=== PATIENT | female | born 1950 | race Caucasian/White ===

== ENCOUNTER 2019-12-05 05:45 | Outpatient (RCR) | payer MEDICARE ==
[~2019-12-05] VITALS: Ht 167.6 cm; Wt 89.2 kg
[~2019-12-05 05:45] MED LIST: LISI-556 PO
== END 2019-12-05 15:12 | disposition home or self-care (01) ==
LOC: PREOP 05:45
PROVIDERS: ATTEND Surgery
DX: Z01.818 Encounter for other preprocedural examination (principal); Z11.59 Encounter for screening for other viral diseases
CPT/HCPCS: 87635

== ENCOUNTER 2019-12-08 08:25 | Day surgery (SDC) | payer MEDICARE, OTHER ==
[2019-12-08] VITALS (11 sets, daily range): BP systolic 121–162; BP diastolic 65–80
[~2019-12-08] VITALS: Ht 167 cm; Wt 89.2 kg
--- OUTSIDE RECORDS SUMMARY | 2019-12-08 08:30 | XMS REPORT | Continuity of Care Document ---
Author Organization Unknown Address Unknown Phone Unavailable Allergies Active Description Code Type Severity Reaction Onset Reported/Identified Relationship to Patient Clinical Status Yes SULFA (SULFONAMIDE ANTIBIOTICS) UNKNOWN UNKNOWN Yes Sulfa (Sulfonamide Antibiotics) [id number] 0491 Drug Allergy Unknown Hives 020 Medications There is no data. 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 04/06/2018 W 296.30 DAWSON OR DEPRESSIVE DISORDER, RECURRENT EPISODE, UNSPECIFIED DEGREE 04/06/2018 W 530.81 ESO PHAGEAL REFLUX 04/06/2018 W E78.5 HYPE RLIPIDEMIA, UNSPECIFIED 04/06/2018 W F33.9 ROSALIND R DEPRESSIVE DISORDER, RECURRENT, UNSPECIFIED 04/06/2018 W K21.9 MARIA INES RO-ESOPHAGEAL REFLUX DISEASE WITHOUT ESOPHAGITIS 04/06/2018 W V12.29 PER VIVEK HISTORY OF OTHER ENDOCRINE, METABOLIC, AND IMMUNITY DISORDERS 04/06/2018 W Z87.39 PER VIVEK HISTORY OF OTHER DISEASES OF THE MUSCULOSKELETAL SYSTEM AND CONNECTIVE TISSUE 07/02/2018 W 466.0 ACUT E BRONCHITIS 07/02/2018 W 780.79 OTH ER MALAISE AND FATIGUE 07/02/2018 W 786.05 MARII RTNESS OF BREATH 07/02/2018 W J20.9 ACUT E BRONCHITIS, UNSPECIFIED 07/02/2018 W R06.02 MARII RTNESS OF BREATH 07/02/2018 W R53.1 WEAKNESS 01/18/2019 W 401.0 GWENDOLYN GNANT ESSENTIAL HYPERTENSION 01/18/2019 W 530.81 ESO PHAGEAL REFLUX 01/18/2019 W 599.0 URIN BARBARA TRACT INFECTION, SITE NOT SPECIFIED 01/18/2019 W 788.41 URI NARY FREQUENCY 01/18/2019 W I10 ESSENT IAL (PRIMARY) HYPERTENSION 01/18/2019 W K21.0 MARIA INES RO-ESOPHAGEAL REFLUX DISEASE WITH ESOPHAGITIS 01/18/2019 W N39.0 URIN BARBARA TRACT INFECTION, SITE NOT SPECIFIED 01/18/2019 W R35.0 FREQ UENCY OF MICTURITION 01/28/2019 W 311 DEPRES SIVE DISORDER, NOT ELSEWHERE CLASSIFIED 01/28/2019 W 401.0 GWENDOLYN GNANT ESSENTIAL HYPERTENSION 01/28/2019 W 530.81 ESO PHAGEAL REFLUX 01/28/2019 W F32.9 ROSALIND R DEPRESSIVE DISORDER, SINGLE EPISODE, UNSPECIFIED 01/28/2019 W I10 ESSENT IAL (PRIMARY) HYPERTENSION 01/28/2019 W K21.0 MARIA INES RO-ESOPHAGEAL REFLUX DISEASE WITH ESOPHAGITIS 02/03/2019 Lety, Kristen W 401.0 MALIGNANT ESSENTIAL HYPERTENSION 02/03/2019 Lety, Kristen W I10 ESSENTIAL (PRIMARY) HYPERTENSION 02/03/2019 Lety, Kristen W 401.0 MALIGNANT ESSENTIAL HYPERTENSION 02/03/2019 Lety, Kristen W I10 ESSENTIAL (PRIMARY) HYPERTENSION 02/03/2019 Lety, Kristen W 401.0 MALIGNANT ESSENTIAL HYPERTENSION 02/03/2019 Lety, Kristen W 530.81 ESOPHAGEAL REFLUX 02/03/2019 Lety, Kristen W I10 ESSENTIAL (PRIMARY) HYPERTENSION 02/03/2019 Lety, Kristen W K21.0 GASTRO- ESOPHAGEAL REFLUX DISEASE WITH ESOPHAGITIS 02/03/2019 Lety, Kristen W 401.0 MALIGNANT ESSENTIAL HYPERTENSION 02/03/2019 Lety, Kristen W 530.81 ESOPHAGEAL REFLUX 02/03/2019 Lety, Kristen W I10 ESSENTIAL (PRIMARY) HYPERTENSION 02/03/2019 Lety, Kristen W K21.0 GASTRO- ESOPHAGEAL REFLUX DISEASE WITH ESOPHAGITIS 02/15/2019 Lety, Kristen W 788.41 URINARY FREQUENCY 02/15/2019 Lety, Kristen W R35.0 FREQUENCY OF MICTURITION 02/15/2019 Lety, Kristen W 599.0 URINARY TRACT INFECTION, SITE NOT SPECIFIED 02/15/2019 Lety, Kristen W 788.41 URINARY FREQUENCY 02/15/2019 Lety, Kristen W N39.0 URINARY TRACT INFECTION, SITE NOT SPECIFIED 02/15/2019 Lety, Kristen W R35.0 FREQUENCY OF MICTURITION 02/15/2019 Lety, Kristen W 599.0 URINARY TRACT INFECTION, SITE NOT SPECIFIED 02/15/2019 Lety, Kristen W 788.41 URINARY FREQUENCY 02/15/2019 Lety, Kristen W N39.0 URINARY TRACT INFECTION, SITE NOT SPECIFIED 02/15/2019 Lety, Kristen W R35.0 FREQUENCY OF MICTURITION 02/15/2019 Lety, Kristen W 599.0 URINARY TRACT INFECTION, SITE NOT SPECIFIED 02/15/2019 Lety, Kristen W 788.41 URINARY FREQUENCY 02/15/2019 Lety, Kristen W N39.0 URINARY TRACT INFECTION, SITE NOT SPECIFIED 02/15/2019 Lety, Kristen W R35.0 FREQUENCY OF MICTURITION 02/15/2019 Lety, Kristen W 599.0 URINARY TRACT INFECTION, SITE NOT SPECIFIED 02/15/2019 Lety, Kristen W 788.41 URINARY FREQUENCY 02/15/2019 Lety, Kristen W N39.0 URINARY TRACT INFECTION, SITE NOT SPECIFIED 02/15/2019 Lety, Kristen W R35.0 FREQUENCY OF MICTURITION Procedures There is no data. Results Test Result Range Cardiac Panel - 10/24/16 12:31 CK 72 U/L 26-174 CK-MB 2.4 ng/ml 0.0-9.2 Myoglobin 45.3 ng/ml 1.6-106.0 Troponin <0.020 ng/mL 0.0-0.4 Lipid Panel - 10/25/16 07:40 C/HDL 6.1 3.7-6.7 Cholesterol 236 mg/dL 100-240 HDL 39 mg/dL 30-85 LDL-Calculated 178 mg/dL 0-100 Trig 97 mg/dL 35-160 VLDL 19 mg/dL 0-42 Urine Culture - 01/13/17 15:50 PRELIM CULTURE RESULTS No Growth 24 hours FINAL CULTURE RESULTS 10,000-20,000 Gram Pos itive Mixed Lety Probable Skin Contaminant No Further Workup done MEDIA PLATED Setup at 15:23 on 01/14/2017 CULTURE SOURCE Urinalysis Free T4 - 04/03/18 10:10 Free T4 0.91 ng/dL 0.81-1.61 Thyroid Stimulating Hormone - 04/03/18 1 0:10 TSH 2.73 mIU/mL 0.32-5.00 Drug Screen + ETOH - 02/22/19 15:00 [employer] Forms Developer Sonia Song Donor ID By Photo ID Ethanol, Urine <10.00 mg/dL 20.00-80.00 Location FMI Reason For Test Pre-Employment Temperature In Range YES Deg F 90.00-100 .00 Urine Amphetamines NEGATIVE Urine Barbiturates NEGATIVE Urine Benzodiazepines NEGATIVE Urine Cocaine NEGATIVE Urine MDMA NEGATIVE Urine Methadone NEGATIVE Urine Methamphetamines NEGATIVE Urine Opiates NEGATIVE Urine Oxycodone NEGATIVE Urine PCP NEGATIVE Urine THC Metabolite NEGATIVE CBC with Auto Diff - 11/18/19 07:50 Baso% 0.30 % 0.00-2.50 Eos 0.2 K/uL 0.0-0.7 Eos% 1.8 % 0.0-7.0 Hct 40.6 % 36.0-46.0 Hgb 13.2 g/dL 13.0-15.0 Lym 2.09 K/uL 0.60-3.40 Lym% 23.0 % 10.0-50.0 MCH 30.6 pg 27.0-31.0 MCHC 32.5 g/dL 32.0-36.0 MCV 94.2 fL 80.0-97.0 [place]% 7.0 % 0.0-12.0 MPV 9.2 fL 7.4-10.0 [place]% 67.9 % 37.0-80.0 Plt 322 K/uL 150-400 RBC 4.31 M/uL 3.60-5.00 RDW 13.1 % 11.6-14.8 WBC 9.08 K/uL 5.00-10.00 [place] 6.16 K/uL 2.00-6.90 [place] 0.6 K/uL 0.0-0.9 Baso 0.0 K/uL 0.0-0.2 Coronavirus SARS-CoV-2 SO 2018 0 08:00 Coronavirus Ab [Units/volume] in Serum Negative Negative Encounters ACCT No. Visit Date/Time Discharge Status Pt. Type Provider Facility Loc./Unit Complaint [id number] 11/23/2019 08:46:00 11/23/2019 23:59 :00 DIS Outpatient Kristen Davidson [id number] 11/21/2019 08:42:00 11/21/2019 23:59 :00 DIS Outpatient Kristen Davidson [id number] 11/18/2019 08:40:00 11/18/2019 23:59 :00 DIS Outpatient Lety, Kristen [id number] 11/18/2019 07:37:00 11/18/2019 23:59 :00 DIS Outpatient Lety, Kristen [id number] 11/17/2019 10:51:00 11/17/2019 23:59 :00 DIS Outpatient Lety, Kristen [id number] 09/09/2019 14:31:00 09/09/2019 23:59 :00 DIS Outpatient Lety, Kristen [id number] 02/22/2019 14:46:00 02/22/2019 23:59: 00 DIS Outpatient UNLISTED, UNLISTED [id number] 02/15/2019 16:00:00 02/15/2019 23:59: 00 DIS Outpatient Lety, Kristen [id number] 02/03/2019 15:31:00 02/03/2019 23:59: 00 DIS Outpatient Lety, Kristen [id number] 04/03/2018 10:10:00 04/03/2018 23:59: 00 DIS Outpatient Lety, Kristen [id number] 01/13/2017 16:25:00 01/13/2017 23:59: 00 DIS Outpatient Tom Sanchez [id number] 10/25/2016 07:40:00 10/25/2016 23:59: 00 DIS Outpatient Tom Sanchez [id number] 10/24/2016 12:02:00 10/24/2016 23:59: 00 DIS Outpatient Tom Sanchez [id number] 02/15/2019 16:25:50 Document Registration [id number] 01/28/2019 14:28:00 Document Registration [id number] 01/18/2019 10:46:00 Document Registration [id number] 07/02/2018 11:06:00 Document Registration [id number] 04/06/2018 16:01:00 Document Registration [id number] 12/05/2019 05:45:00 020 15:12:00 DIS Outpatient SANTOS KEITH MD [facility] [place] [id number] 12/08/2019 09:00:00 P EN Preadmit [facility] KEITH [facility] [place]
--- NOTE | 2019-12-08 08:50 | Progress Note-Pre Operative ---
Pre-Operative Progress Note H&P Reviewed The H&P was reviewed, patient examined and no changes noted. Date Seen by Provider: Dec 08, 2019 Time Seen by Provider: 08:45 Date H&P Reviewed: Dec 08, 2019 Time H&P Reviewed: 08:40 Pre-Operative Diagnosis: Chronic calculous cholecystitis JI BATES LICENSE DISTRIBUTOR Dec 08, 2019 08:50
[2019-12-08] MEDS ORDERED: ROCURONIUM 10 MG/ML 5 ML SYRINGE IV ONE (08:51)
[2019-12-08] MEDS ORDERED: proPOfol 200 MG/20 ML (DIPRIVAN) VIAL IV ONE (08:51)
[2019-12-08] MEDS ORDERED: MIDAZOLAM 2 MG/2 ML (VERSED) VIAL ONE (08:51)
[2019-12-08] MEDS ORDERED: GLYCOPYRROLATE 0.2 MG/ML (ROBINUL) 2 ML VIAL ONE (08:51)
[2019-12-08] MEDS ORDERED: NEOSTIGMINE 3 MG/3 ML VIAL ONE (08:51)
[2019-12-08] MEDS ORDERED: SEVOFLURANE (ULTANE) 15 ML INHAL SOLN ONE (08:51)
[2019-12-08] MEDS ORDERED: LIDOCAINE PF 2% 5 ML (XYLOCAINE) VIAL ONE (08:51)
[2019-12-08] MEDS ORDERED: ONDANSETRON 4 MG/2 ML (SDV) Z0FRAN ONE (08:51)
[2019-12-08] MEDS ORDERED: fentaNYL INJECTION 100 MCG/2 ML AMP ONE (08:51)
[2019-12-08] MEDS ORDERED: DEXAMETHASONE 10 MG/ML (DECADRON) 1 ML VIAL ONE (08:51)
[2019-12-08] MEDS ORDERED: HYDR-4227 PO (08:52)
--- NOTE | 2019-12-08 08:52 | Discharge Inst-Surgical ---
D/C Lap Instructions-KIDO Reconcile Patient Problems Problems Reviewed?: Yes New, Converted, or Re-Newed RX: RX on Chart Follow Up Appt in 2 weeks Activity as tolerated No driving for 24 hours No driving while on pain medications Incentive Spirometry use every 2 hours while awake Regular Diet Symptoms to Report: Fever over 101 degree F, Nausea/Vomiting Infection Signs and Symptoms to report: Increased redness, Foul odor of wound, Increased drainage Bathing instructions: May shower Operative Area Clean/Dry; Keep incision clean/dry If any problems/questions: Contact your physician or go to Emergency Room JI BATES APRN Dec 08, 2019 08:52
[2019-12-08] MEDS ORDERED: ACETAMINOPHEN 325 MG TABLET PO PRN (09:00)
[2019-12-08] MEDS ORDERED: ONDANSETRON 4 MG/2 ML (SDV) Z0FRAN IVP PRN ×2 (09:00→12:00)
[2019-12-08] MEDS ORDERED: HYDROcodone/APAP 5 MG/325 MG (LORTAB) TAB PO ONE (09:00)
[2019-12-08] MEDS ORDERED: morphine INJ 10 MG/ML 1ML (SYR OR VIAL) IVP PRN (09:00)
[2019-12-08] MEDS ORDERED: ceFAZolin 2 GM IV Premixed 50 ML ONE (09:03)
[2019-12-08] MEDS: LACTATED RINGERS 1,000 ML IV PRN ×2 (09:08→11:13)
[2019-12-08] MEDS ORDERED: ceFAZolin 2 GM IV Premixed 50 ML IV ONE (09:15)
[2019-12-08] MEDS ORDERED: ONDA4TAB11 PO (09:28)
[2019-12-08] MEDS ORDERED: HYDR15SO6 PO (09:28)
[2019-12-08] MEDS ORDERED: BUP/EPI 0.5% 1:200,000 (SENSORCAINE) 30 ML VIAL ONE (10:06)
[2019-12-08] MEDS ORDERED: HYDROmorphone 2 MG/ML VIAL (DILAUDID) ONE (11:26)
[2019-12-08] MEDS ORDERED: KETOROLAC 30 MG/ML VIAL ONE (11:35)
--- NOTE | 2019-12-08 11:46 | Progress Note-Post Operative ---
Post-Operative Progess Note Surgeon (s)/Accounting Coordinator (s) Surgeon SANTOS KEITH MD Accounting Coordinator: rani COMER Pre-Operative Diagnosis Chronic calculous cholecystitis Post-Operative Diagnosis same Procedure & Operative Findings Date of Procedure 12/08/19 Procedure Performed/Findings laparoscopic cholecystectomy Anesthesia Type get Estimated Blood Loss Estimated blood loss (mL): minimal Specimens/Packing Specimens Removed gallbladder SANTOS KEITH MD Dec 08, 2019 11:46
[2019-12-08] MEDS ORDERED: HYDROmorphone 2 MG/ML VIAL (DILAUDID) IV ONE (12:00)
[2019-12-08] MEDS ORDERED: HYDROcodone/APAP 7.5MG-325 MG/15 ML (LORTAB) UDC PO PRN (12:45)
--- NOTE | 2019-12-08 13:50 | NUR ---
O2 SAT RUNNING 87% ON ROOM AIR. TURNED O2 ON AT 2 LITERS/MIN PER NASAL CANNULA. PATIENT REPORTS PAIN IS "GOING AWAY BUT I'M VERY SLEEPY." S.O. ATTENTIVE AT THE BEDSIDE.
--- NOTE | 2019-12-08 14:10 | OPERATIVE REPORT ---
DATE OF SERVICE: 12/08/2019 ATTENDING PRIMARY DINING MANAGER: KISHORE Pendleton PREOPERATIVE DIAGNOSIS: Symptomatic chronic calculous cholecystitis. POSTOPERATIVE DIAGNOSES: Symptomatic chronic calculous cholecystitis. PROCEDURE: Laparoscopic cholecystectomy. SURGEON: Santos Keith MD SOFTWARE RECRUITER: Enrico Avalos APRN. ANESTHESIA: General endotracheal. ESTIMATED BLOOD LOSS: Minimal. FINDINGS: Multiple small gallstones, dilated gallbladder. DISPOSITION: The patient tolerated the procedure well. INDICATIONS: The patient is a 69-year-old female who has had intermittent episodes of pain in the right upper abdominal quadrant as well as associated bloating and mild nausea after eating meals. She states that this has been going on for the past 3 years; however, the past few months, this has become much more significant. An ultrasound was performed, which did show gallstones. She does not report any major issues with peptic ulcer disease nor gastroesophageal reflux disease. DESCRIPTION OF PROCEDURE: The patient was brought to the operating room, laid supine on the table. After adequate IV pain and sedative medications and general endotracheal intubation, the abdomen was prepped and draped in standard surgical fashion. A 0.5% Marcaine with epinephrine was then used to anesthetize overlying skin in the left upper abdominal quadrant and a transverse skin incision made using 15 blade. An 0 silk suture was applied to the medial aspect incision for retraction and a Veress needle inserted with low opening pressure of 0 mmHg and the abdomen was then insufflated to 15 mmHg pressure. The Veress needle removed and a 5 mm XL trocar placed followed by a 5 mm 45-degree angle laparoscope visualizing the peritoneal cavity. A 4-quadrant abdominal exploration was performed. There were omental adhesions to the anterior abdominal wall from a previous open hysterectomy. Under direct visualization, we then proceeded to place a supraumbilical 10 mm port after the skin and peritoneal lining were anesthetized using 0.5% Marcaine with epinephrine. In a similar fashion, right upper abdominal quadrant 5 mm port was placed. The gallbladder was distended. There was mild gallbladder wall thickening as well. The fundus of the gallbladder was then retracted anteriorly and superiorly, and the patient was then placed in reverse Trendelenburg position as well as plane right side up and left side down. The hepatoduodenal ligament was then opened using blunt dissection as well as electrocautery on the hook instrument. The entire critical view of safety was identified including the triangle of Calot as well as the cystic duct and artery as the only two structures going into the gallbladder as well as the cystic plate behind the proximal gallbladder. A timeout was then taken, and the cystic duct and artery were then clipped proximally, distally and cut with EndoShears. The gallbladder was then dissected off the liver bed using electrocautery and hook instrument with visualization of good hemostasis as well as no leaking ducts of Luschka. The gallbladder was removed through the 10 mm port site using an EndoCatch bag. The 10 mm port site fascia and peritoneum were then closed under direct visualization using a Abel-Theodore device and 0 Vicryl suture. The abdomen was desufflated and the remaining ports removed. All skin incisions were closed using 4-0 Monocryl running subcuticular sutures. Wounds were then cleaned and covered with Dermabond. The patient tolerated the procedure well. We will start IV normal pain medication as well as a clear liquid diet. When she is tolerating clears, has good pain control with oral pain medications, ambulating well, we will discharge her home. Job ID: [id number] DocumentID: [id number] Dictated Date: 12/08/2019 11:53:15 Classification And Treatment Director Date: 12/08/2019 14:09:36 Dictated By: SANTOS KEITH MD
--- NOTE | 2019-12-08 14:44 | Anesthesia-General Post-Op ---
General Patient Condition Mental Status/LOC: Same as Preop Cardiovascular: Satisfactory Nausea/Vomiting: Absent Respiratory: Satisfactory Pain: Controlled Complications: Absent Post Op Complications Complications None Follow Up Care/Instructions Patient Instructions None needed. Anesthesia/Patient Condition Patient Condition Patient is doing well, no complaints, stable vital signs, no apparent adverse anesthesia problems. No complications reported per nursing. D/C home per [facility] Criteria: Yes BETINA MORRIS CRNA Dec 08, 2019 14:44
--- NOTE | 2019-12-08 15:50 | NUR ---
DISCHARGE INSTRUCTIONS WENT OVER WITH THE PATIENT. PATIENT COMPLAINS OF NAUSEA. ORDER RECEIVED FOR ZOFRAN 8 MG IV. PATIENT HAS RECEIVED 1950 CC OF NORMAL SALINE. O2 SAT 94% ON ROOM AIR.
[2019-12-08] MEDS ORDERED: ONDANSETRON 4 MG/2 ML (SDV) Z0FRAN IVP ONE (16:00)
== END 2019-12-08 17:00 | disposition home or self-care (01) ==
LOC: SDC 08:25
PROVIDERS: ATTEND Surgery
DX: K80.10 Calculus of gallbladder with chronic cholecystitis without obstruction (principal); K82.8 Other specified diseases of gallbladder; I10 Essential (primary) hypertension; Z79.899 Other long term (current) drug therapy; Z88.2 Allergy status to sulfonamides; Z90.710 Acquired absence of both cervix and uterus; Z80.42 Family history of malignant neoplasm of prostate; Z83.3 Family history of diabetes mellitus; Z11.2 Encounter for screening for other bacterial diseases
CPT/HCPCS: 87081; 88304

== ENCOUNTER 2020-06-18 05:28 | Outpatient (RCR) | payer MEDICARE, OTHER ==
[~2020-06-18] VITALS: Ht 167 cm; Wt 92.7 kg
[~2020-06-18 05:28] MED LIST changes: +HYDR-4227 PO; +HYDR15SO6 PO; +OMEP40CA27 PO; +ONDA4TAB11 PO
== END 2020-06-18 10:20 | disposition home or self-care (01) ==
LOC: PREOP 05:28
PROVIDERS: ATTEND Surgery
DX: Z01.818 Encounter for other preprocedural examination (principal); Z12.11 Encounter for screening for malignant neoplasm of colon; K21.9 Gastro-esophageal reflux disease without esophagitis; Z20.828 Contact with and (suspected) exposure to other viral communicable diseases
CPT/HCPCS: 87635

== ENCOUNTER 2020-06-20 10:19 | Day surgery (SDC) | payer MEDICARE, OTHER ==
[~2020-06-20] VITALS: Ht 167 cm; Wt 92.7 kg
[2020-06-20] MEDS ORDERED: LACTATED RINGERS 1,000 ML IV STA (10:20)
[2020-06-20] MEDS ORDERED: LACTATED RINGERS 1,000 ML IV ONE (10:29)
[2020-06-20] MEDS ORDERED: HURRICAINE EXT TUBE (BENZOCAINE) XX PRN (10:30)
[2020-06-20 10:35] VITALS: BP 140/78
--- NOTE | 2020-06-20 10:45 | Conscious Sedation/ASA ---
Conscious Sedation Pre-Proced Time 10:30 ASA Score 2 For ASA 3 and 4: Consider anesthesia and medical clearance. Also, for patients with a history of failed moderate sedation consider anesthesia. Airway Lungs Heart ASA score ASA 1: a normal healthy patient ASA 2: a patient with a mild systemic disease (mid diabetes, controlled hypertension, obesity ASA 3: a patient with a severe systemic disease that limits activity (angina, COPD, prior Myocardial infarction) ASA 4: a patient with an incapacitating disease that is a constant threat to life (CHF, renal failure) ASA 5: a moribund patient not expected to survive 24 hrs. (ruptured aneurysm) ASA 6: a declared brain- patient whose organs are being harvested. For emergent operations, add the letter E after the classification Mallampati Classification Grade 2 Sedation Plan Analgesia, Amnesia, Plan communicated to team members, Discussed options with patient/fam, Discussed risks with patient/fam The patient is an appropriate candidate to undergo the planned procedure, sedation, and anesthesia. The patient immediately re-assessed prior to indication. SANTOS KEITH MD Jun 20, 2020 10:45
--- NOTE | 2020-06-20 10:46 | Progress Note-Pre Operative ---
Pre-Operative Progress Note H&P Reviewed The H&P was reviewed, patient examined and no changes noted. Date Seen by Provider: Jun 20, 2020 Time Seen by Provider: 10: Date H&P Reviewed: Jun 20, 2020 Time H&P Reviewed: 10:30 Pre-Operative Diagnosis: GERD, screening o SANTOS KEITH MD Jun 20, 2020 10:46
--- NOTE | 2020-06-20 10:47 | Discharge Inst-Surgical ---
D/C Lap Instructions-INNA Follow Up Activity as tolerated High Fiber Diet 25g or more per day Avoid Alcohol, Caffeine, Spicy [place] and Acid foods. Drink 64 fluid oz or more of fluids per day. Symptoms to Report: Fever over 101 degree F, Nausea/Vomiting If any problems/questions: Contact your physician or go to Emergency Room SANTOS KEITH MD Jun 20, 2020 10:47
[2020-06-20] MEDS ORDERED: HYDROcodone/APAP 5 MG/325 MG (LORTAB) TAB PO PRN (11:00)
[2020-06-20] MEDS ORDERED: ACETAMINOPHEN 325 MG TABLET PO PRN (11:00)
[2020-06-20] MEDS ORDERED: ONDANSETRON 4 MG/2 ML (SDV) Z0FRAN IVP PRN (11:00)
[2020-06-20] MEDS ORDERED: morphine INJ 10 MG/ML 1ML (SYR OR VIAL) IVP PRN ×2 (11:00)
[2020-06-20] MEDS ORDERED: MIDAZOLAM 2 MG/2 ML (VERSED) VIAL ONE (11:58)
[2020-06-20] MEDS ORDERED: PROPOFOL INJECTION 50 ML IV ONE ×2 (11:58→12:24)
[2020-06-20] MEDS ORDERED: LIDOCAINE JELLY 2% 6 ML SYRINGE ONE (12:13)
[2020-06-20] MEDS: LIDOCAINE JELLY 2% 6 ML SYRINGE MM PRN ×2 (12:13→12:28)
[2020-06-20 12:45] VITALS: BP 120/66
[2020-06-20 12:50] VITALS: BP 110/54
[2020-06-20 12:55] VITALS: BP 115/66
[2020-06-20 13:05] VITALS: BP 115/66
--- NOTE | 2020-06-20 13:12 | Progress Note-Post Operative ---
Post-Operative Progess Note Surgeon (s)/Finishing Room Supervisor (s) Surgeon SANTOS KEITH MD Finishing Room Supervisor: none Pre-Operative Diagnosis GERD, screening colo Post-Operative Diagnosis reflux esophagitis(stage 2), mild distal esophageal stricture, small HH(1.5cm), mild gastritis. mild chronic stage 2 ext and int hemorrhoids. Procedure & Operative Findings Date of Procedure 06/20/20 Procedure Performed/Findings EGD with bx and balloon dilatation. Colonoscopy. Anesthesia Type mac Estimated Blood Loss Estimated blood loss (mL): minimal Specimens/Packing Specimens Removed ge jxn, antrum SANTOS KEITH MD Jun 20, 2020 13:12
[2020-06-20 13:25] VITALS: BP 130/79
--- NOTE | 2020-06-20 14:53 | Anesthesia-General Post-Op ---
MAC Patient Condition Mental Status/LOC: Same as Preop Cardiovascular: Satisfactory Nausea/Vomiting: Absent Respiratory: Satisfactory Pain: Controlled Complications: Absent Post Op Complications Complications None Follow Up Care/Instructions Patient Instructions None needed. Anesthesiology Discharge Order Discharge Order Patient is doing well, no complaints, stable vital signs, no apparent adverse anesthesia problems. No complications reported per nursing. SAMPSON CARRERA CRNA Jun 20, 2020 14:53
--- NOTE | 2020-06-20 20:13 | OPERATIVE REPORT ---
DATE OF SERVICE: 06/20/2020 ATTENDING INTERNATIONAL ACCOUNT REPRESENTATIVE: KISHORE Pendleton. PREOPERATIVE DIAGNOSES: Gastroesophageal reflux disease, screening colonoscopy. POSTOPERATIVE DIAGNOSES: Reflux esophagitis stage II with a mild distal esophageal stricture and Schatzki's ring. Mild gastritis. No distal obstructions. Chronic stage II external and internal hemorrhoids. PROCEDURE: EGD with biopsy and balloon dilatation, colonoscopy. SURGEON: Santos Keith MD ANESTHESIA: Monitored anesthesia care. ESTIMATED BLOOD LOSS: Minimal. FINDINGS: Reflux esophagitis stage II with a mild distal esophageal stricture and Schatzki's ring. Mild gastritis. No distal obstructions. Chronic stage II external and internal hemorrhoids. DISPOSITION: The patient tolerated the procedure well. INDICATIONS: The patient is a 69-year-old female known to us. We had initially seen her 11/2019 for intermittent right upper abdominal quadrant pain, was found to have gallstones and underwent a laparoscopic cholecystectomy on 12/18/2019. She reports she has had upper abdominal pain and bloating usually after eating and also does have epigastric burning sensation. She also does report some substernal pressure sensation after food bolus. She is also in need of a screening colonoscopy. She has not had a colonoscopy up to this point in her life. She does not report any family history of colon cancer. DESCRIPTION OF PROCEDURE: The patient was brought to the endoscopy suite, laid in the left lateral decubitus position. After adequate IV pain and sedative medications and monitored anesthesia care, the mouthpiece was applied. The endoscope was placed in the mouth, visualizing the pharynx and hypopharyngeal region. Vocal cords, epiglottis and vallecula identified and appeared to be normal. The endoscope was gently intubated into the esophageal opening and esophagus insufflated. The endoscope was then advanced to the first, second and third portion of the esophagus at the level of the GE junction, a mild distal esophageal stricture and Schatzki's ring identified. There was also reflux esophagitis stage II. A biopsy was taken of the GE junction with forceps with visualization of good hemostasis. The endoscope was then advanced in the stomach and endoscope retroflexed, visualizing a small hiatal hernia approximately 1.5 cm in size. There was a mild gastritis. No formal ulcerations, polyps, or any neoplasms. A biopsy was taken of the antrum to rule out H. pylori with visualization of good hemostasis. The endoscope was then advanced to the pylorus and first and second portion of the duodenum, which appeared normal with no distal obstructions. We then proceeded with balloon dilatation of distal esophageal stricture. The balloon was placed in the stomach and pulled back to the area of the stricture. We first proceeded to 2, 4 and then 6 atmospheres of pressure or 20 mm in luminal diameter in a stepwise fashion with moderate resistance. This was left in place for 60 seconds and the balloon was desufflated and removed with visualization of good hemostasis as well as no mucosal tears. Endoscope was then slowly withdrawn while taking a second look and suctioning of residual air with no additional findings. We then proceeded with colonoscopy portion of the procedure. Digital rectal examination was performed, which revealed mild chronic stage II external and internal hemorrhoids, not actively edematous nor inflamed and no bleeding. Normal sphincter tone was felt and there were no palpable masses. The endoscope was then intubated into anus and rectum gently insufflated. The endoscope was then advanced to the valves of [place] of the rectum with no polyps or any neoplasms identified. We then proceeded through the sigmoid colon where no diverticulosis identified. The endoscope was then advanced and remainder of the descending, transverse and ascending colon to the cecum. These segments were normal. There were no polyps or any neoplasms identified throughout the colon or rectum. The endoscope was then slowly withdrawn while taking a second look and suctioning of residual air with no additional findings. The patient tolerated the procedure well. We will recommend the necessary lifestyle and diet accommodation including small and more frequent meals, avoidance of eating at night as well as head elevation while lying supine. She also needs to avoid caffeinated beverages, spicy, greasy and acidic foods and continue to take her omeprazole 40 mg daily. We will also recommend a high fiber diet with at least 25 grams of fiber daily to promote soft stools on a daily basis. If she is asymptomatic, she does not need another colonoscopy for another 10 years. Job ID: [id number] DocumentID: [id number] Dictated Date: 06/20/2020 12:58:43 Die Cleaner Date: 06/20/2020 20:12:30 Dictated By: SANTOS KEITH MD
== END 2020-06-20 13:30 | disposition home or self-care (01) ==
LOC: ENDO 10:19
PROVIDERS: ATTEND Surgery
DX: Z12.11 Encounter for screening for malignant neoplasm of colon (principal); K29.50 Unspecified chronic gastritis without bleeding; K21.00 Gastro-esophageal reflux disease with esophagitis, without bleeding; K22.2 Esophageal obstruction; K64.1 Second degree hemorrhoids; I10 Essential (primary) hypertension; K21.9 Gastro-esophageal reflux disease without esophagitis; Z79.899 Other long term (current) drug therapy; Z88.2 Allergy status to sulfonamides; Z90.711 Acquired absence of uterus with remaining cervical stump; Z83.3 Family history of diabetes mellitus; Z80.42 Family history of malignant neoplasm of prostate
CPT/HCPCS: 43239; 43249; G0121; 88305

== ENCOUNTER 2022-03-05 12:04 | Emergency (ER) | payer MEDICARE, OTHER ==
[~2022-03-05] VITALS: Ht 167 cm; Wt 66.2 kg
[~2022-03-05 12:04] MED LIST changes: -LISI-556 PO; +LISI5TAB20 PO; -OMEP40CA27 PO; +OMEP40CA6 PO
--- NOTE | 2022-03-05 12:26 | ED Syncope ---
General Chief Complaint: Dizziness/Syncope Stated Complaint: SYNCOPE Source of Information: Patient, EMS Exam Limitations: No Limitations History of Present Illness Date Seen by Provider: Mar 05, 2022 Time Seen by Provider: 12:08 Initial Comments Well-appearing 71-year-old female with history of DM, HTN and HLD who presented to the ER via [facility] after a syncopal episode at the chiropractor office today. Patient states that she was having her mid thoracic region adjusted this is the first time in several months but she has been adjusted in this same area approximate 4-5 other times. Denies adjustment of her neck. After she was adjusted she was sitting in a chair with a TENS unit on, states she had about 5 minutes left of the TENS unit when she felt dizzy and had passed out. There was no one in room with her, she was found slumped over in chair. Bystanders states that it took several minutes to bring her to consciousness. Upon arrival she feels nauseated but has no pain. She denies headache, dizziness, neck pain, chest pain, shortness of breath, abdominal pain at this ti me. States that her nausea is improving. Allergies and Home Medications Allergies Coded Allergies: Sulfa (Sulfonamide Antibiotics) (Verified Allergy, Mild, Hives, 06/13/20) Patient Home Medication List Home Medication List Reviewed: Yes Lisinopril (Lisinopril) 5 Mg Tablet, 5 MG PO DAILY, (Reported) Entered as Reported by: JAMIL CYR on 12/01/19 1438 Omeprazole (Omeprazole) 40 Mg Capsule.dr, 40 MG PO DAILY, (Reported) Entered as Reported by: TRISTAN FAY on 06/13/20 1104 Past Nnlyxde-Fmqpyb-Pjssmj Hx Seasonal Allergies Seasonal Allergies: Yes (MILD) Past Medical History Surgeries: Yes Appendectomy, Gallbladder, Hysterectomy, Oophorectomy, Tonsillectomy Respiratory: No Currently Using CPAP: No Currently Using BIPAP: No Cardiac: Yes Hypertension Neurological: No Sexually Transmitted Disease: No HIV/AIDS: No Genitourinary: No Gastrointestinal: Yes Gastroesophageal Reflux Musculoskeletal: No Endocrine: No HEENT: No (DENTURES) Loss of Vision: Denies Hearing Impairment: Denies Cancer: No Psychosocial: No Integumentary: No Blood Disorders: No Adverse Reaction/Blood Tranf: No (N/A) Physical Exam Vital Signs Vital Signs - First Documented 03/05/22 12:19 Temp 35.7 Pulse 57 Resp 22 B/P (MAP) 130/66 (87) Capillary Refill : Height, Weight, BMI Height: '" Weight: lbs. oz. kg; 33.23 BMI Method: Progress/Results/Core Measures Results/Orders Lab Results Laboratory Tests Test 03/05/22 12:37 03/05/22 12:59 Range/Units Urine Color YELLOW Urine Clarity CLEAR Urine pH 7.0 5-9 Urine Specific [place] 1.010 L 1.016-1.022 Urine Protein NEGATIVE NEGATIVE Urine Glucose (UA) NEGATIVE NEGATIVE Urine Ketones NEGATIVE NEGATIVE Urine Nitrite NEGATIVE NEGATIVE Urine Bilirubin NEGATIVE NEGATIVE Urine Urobilinogen 0.2 < = 1.0 MG/DL Urine Leukocyte Esterase 2+ H NEGATIVE Urine RBC (Auto) TRACE-I H NEGATIVE Urine RBC NONE /HPF Urine WBC 2-5 /HPF Urine Squamous Epithelial Cells 2-5 /HPF Urine Renal Epithelial Cells RARE /HPF Urine Crystals NONE /LPF Urine Bacteria NEGATIVE /HPF Urine Casts PRESENT /LPF Urine Hyaline Casts RARE /LPF Urine Mucus NEGATIVE /LPF Urine Culture Indicated NO White Blood Count 7.8 4.3-11.0 10^3/uL Red Blood Count 3.92 3.80-5.11 10^6/uL Hemoglobin 12.2 11.5-16.0 g/dL Hematocrit 37 35-52 % Mean Corpuscular Volume 95 80-99 fL Mean Corpuscular Hemoglobin 31 25-34 pg Mean Corpuscular Hemoglobin Concent 33 32-36 g/dL Red Cell Distribution Width 12.4 10.0-14.5 % Platelet Count 208 130-400 10^3/uL Mean Platelet Volume 9.2 9.0-12.2 fL Immature Granulocyte % (Auto) 1 % Neutrophils (%) (Auto) 70 42-75 % Lymphocytes (%) (Auto) 22 12-44 % Monocytes (%) (Auto) 6 0-12 % Eosinophils (%) (Auto) 1 0-10 % Basophils (%) (Auto) 1 0-10 % Neutrophils # (Auto) 5.4 1.8-7.8 10^3/uL Lymphocytes # (Auto) 1.7 1.0-4.0 10^3/uL Monocytes # (Auto) 0.5 0.0-1.0 10^3/uL Eosinophils # (Auto) 0.1 0.0-0.3 10^3/uL Basophils # (Auto) 0.1 0.0-0.1 10^3/uL Immature Granulocyte # (Auto) 0.0 0.0-0.1 10^3/uL Prothrombin Time 14.1 12.2-14.7 SEC INR Comment 1.1 0.8-1.4 Activated Partial Thromboplast Time 26 24-35 SEC D-Dimer 0.38 0.00-0.49 UG/ML Sodium Level 143 135-145 MMOL/L Potassium Level 4.5 3.6-5.0 MMOL/L Chloride Level 107 98-107 MMOL/L Carbon Dioxide Level 23 21-32 MMOL/L Anion Gap 13 5-14 MMOL/L Blood Urea Nitrogen 16 7-18 MG/DL Creatinine 0.80 0.60-1.30 MG/DL Estimat Glomerular Filtration Rate 79 BUN/Creatinine Ratio 20 Glucose Level 114 H 70-105 MG/DL Calcium Level 8.9 8.5-10.1 MG/DL Corrected Calcium 8.7 8.5-10.1 MG/DL Magnesium Level 1.9 1.6-2.4 MG/DL Total Bilirubin 0.3 0.1-1.0 MG/DL Aspartate Amino Transf (AST/SGOT) 19 5-34 U/L Alanine Aminotransferase (ALT/SGPT) 21 0-55 U/L Alkaline Phosphatase 39 L 40-136 U/L Troponin I < 0.028 <0.028 NG/ML Total Protein 6.5 6.4-8.2 GM/DL Albumin 4.2 3.2-4.5 GM/DL My Orders Orders - [employer] Cbc With Automated Diff (03/05/22 12:19) Protime With Inr (03/05/22 12:19) Partial Thromboplastin Time (03/05/22 12:19) Comprehensive Metabolic Panel (03/05/22 12:19) Fibrin Degradation Products (03/05/22 12:19) Troponin I [place] (03/05/22 12:19) Ua Culture If Indicated (03/05/22 12:19) Chest 1 View, Ap/Pa Only (03/05/22 12:19) Ekg Tracing (03/05/22 12:19) Accucheck Stat ONCE (03/05/22 12:19) Ed Iv/Invasive Line Start (03/05/22 12:19) Vital Signs Stroke Patient Q15M (03/05/22 12:19) O2 (03/05/22 12:19) Monitor-Rhythm Ecg Trace Only (03/05/22 12:19) Dysphagia Screening Tool [id number] (03/05/22 12:19) Magnesium (03/05/22 12:19) Ct Head/Cervical Spine Wo (03/05/22 12:19) Vital Signs/I&O 03/05/22 12:19 Temp 35.7 Pulse 57 Resp 22 B/P (MAP) 130/66 (87) Progress Progress Note : Progress Note Patient examined in no acute distress. GCS 15. She is slightly sleepy but is alert and answering questions appropriately. No focal or gross neurological deficits. she does have significant history and risk factors for CVA which include hypertension, diabetes, hyperlipidemia. This was unwitnessed and so she could potentially have had a TIA given her history. Injury to vertebral or carotid artery unlikely as she had no adjustment of her neck. She has no chest pain at this time however we will go ahead and evaluate for any cardiac origin due to syncope. Orders placed for CT head and neck, stroke and cardiac work-up initiated. Departure Impression Primary Impression: Syncope Disposition: 01 HOME, SELF-CARE Condition: Improved Departure-Patient Inst. Decision time for Depature: 14:13 Referrals: NO,LOCAL PHYSICIAN (PCP) Primary Care Physician CAIO WINCHESTER (Family) Primary Care Physician Patient Instructions: Syncope (Fainting) (DC) Add. Discharge Instructions: Plan: 1. Follow up with your primary care provider please call to schedule follow up. 2. Avoid adjustment's until we have completed your workup. 3. Reviewed imaging and labs with your primary care provider, will plan to have close follow-up, potential cardiac Holter monitor and evaluation of carotid arteries. 4. Return to ER if you have any new, concerning, or worsening symptoms. Signs of stroke outlined below: If you think you may be having a stroke, act F.A.S.T. and do the following test: FFace: Ask the person to smile. Does one side of the face droop? AArms: Ask the person to raise both arms. Does one arm drift downward? SSpeech: Ask the person to repeat a simple phrase. Is the speech slurred or strange? TTime: If you see any of these signs, call 9-1-1 right away. Note the time when any symptoms first appear. This information helps health care providers determine the best treatment for each person. Do not drive to the hospital or let someone else drive you. Call 9--1 for an ambulance so that medical personnel can begin life-saving treatment on the way to the emergency room. All discharge instructions reviewed with patient and/or family. Voiced understanding. [employer] Mar 05, 2022 12:26
[2022-03-05 12:43] LABS: BILIRUBIN,URINE NEGATIVE (NEGATIVE); CLARITY,URINE CLEAR; COLOR,URINE YELLOW; GLUCOSE, URINE (UA) NEGATIVE (NEGATIVE); KETONES,URINE NEGATIVE (NEGATIVE); LEUKOCYTE ESTERASE ,URINE 2+ (NEGATIVE); NITRITE,URINE NEGATIVE (NEGATIVE); PROTEIN,URINE NEGATIVE (NEGATIVE)
[2022-03-05 12:52] LABS: BACTERIA,URINE NEGATIVE /HPF
[2022-03-05 12:53] LABS: HYALINE CASTS, URINE RARE /LPF; RENAL EPITHELIAL CELLS,URINE RARE /HPF
--- NOTE | 2022-03-05 12:55 | Diagnostic Imaging Report ---
PROCEDURE: CT head and CT cervical spine without contrast. TECHNIQUE: Multiple contiguous axial images were obtained through the brain and cervical spine without the use of intravenous contrast. Sagittal and coronal reformations through the cervical spine were then performed. Auto Exposure Controls were utilized during the CT exam to meet ALARA standards for radiation dose reduction. INDICATION: Dizziness and syncope. COMPARISON: None FINDINGS: CT head: Ventricles and cortical sulci are age-appropriate. There is no midline shift or mass-effect. No acute intra-axial hemorrhage is seen. There are no abnormal areas of increased or decreased density to suggest acute hemorrhage or edema. No extra-axial masses or collections are present. The bony calvarium is intact. The visualized paranasal sinuses are unremarkable. The mastoid air cells are clear. CT cervical spine: Evaluation static alignment shows straightening of normal lordotic curvature. There is also slight grade 1 anterolisthesis at C3-C4 through C5-C6. There is however no evidence of jumped facets. Vertebral body heights are maintained. There is no acute fracture. No bony fragments are seen within the spinal canal. Mild multilevel degenerative changes are noted. Pre and paravertebral soft tissue structures are unremarkable. Included portions lung apices show no additional acute abnormalities. IMPRESSION: 1. No acute intracranial abnormality. No CT evidence of mass, acute infarct or intracranial hemorrhage. 2. No acute fracture or dislocation the cervical spine. Dictated by: Dictated on workstation # [id number]
--- NOTE | 2022-03-05 12:58 | Diagnostic Imaging Report ---
INDICATION: Syncope. COMPARISON: None. FINDINGS: Single frontal view of the chest demonstrates normal heart size and pulmonary vascularity. The lungs are well aerated and clear. No large pleural effusion or pneumothorax is seen. The visualized osseous structures show no acute abnormalities. IMPRESSION: 1. No acute cardiopulmonary process. Dictated by: Dictated on workstation # [id number]
[2022-03-05 13:04] LABS: BASOPHILS # (AUTO) 0.1 10^3/uL (0.0-0.1); BASOPHILS % (AUTO) 1 % (0-10); EOSINOPHILS # (AUTO) 0.1 10^3/uL (0.0-0.3); EOSINOPHILS % (AUTO) 1 % (0-10); HEMATOCRIT 37 % (35-52); HEMOGLOBIN 12.2 g/dL (11.5-16.0); LYMPHOCYTES # (AUTO) 1.7 10^3/uL (1.0-4.0); LYMPHOCYTES % (AUTO) 22 % (12-44); MEAN CORPUSCULAR HEMOGLOBIN 31 pg (25-34); MEAN CORPUSCULAR HGB CONC 33 g/dL (32-36); MEAN CORPUSCULAR VOLUME 95 fL (80-99); MEAN PLATELET VOLUME 9.2 fL (9.0-12.2); MONOCYTES # (AUTO) 0.5 10^3/uL (0.0-1.0); MONOCYTES % (AUTO) 6 % (0-12); NEUTROPHILS # (AUTO) 5.4 10^3/uL (1.8-7.8); NEUTROPHILS % (AUTO) 70 % (42-75); PLATELET COUNT 208 10^3/uL (130-400); WHITE BLOOD COUNT 7.8 10^3/uL (4.3-11.0)
[2022-03-05 13:12] LABS: ALBUMIN 4.2 GM/DL (3.2-4.5); CHLORIDE 107 MMOL/L (98-107); POTASSIUM 4.5 MMOL/L (3.6-5.0); SODIUM 143 MMOL/L (135-145)
[2022-03-05 13:14] LABS: CALCIUM 8.9 MG/DL (8.5-10.1)
[2022-03-05 13:15] LABS: GLUCOSE 114 MG/DL (70-105); TOTAL PROTEIN 6.5 GM/DL (6.4-8.2)
[2022-03-05 13:16] LABS: CARBON DIOXIDE 23 MMOL/L (21-32)
[2022-03-05 13:17] LABS: BILIRUBIN,TOTAL 0.3 MG/DL (0.1-1.0)
[2022-03-05 13:18] LABS: ALKALINE PHOSPHATASE 39 U/L (40-136); FIBRIN DEGRADATION PRODUCTS 0.38 UG/ML (0.00-0.49); GFR ESTIMATED 79; INR 1.1 (0.8-1.4); PROTHROMBIN TIME PATIENT 14.1 SEC (12.2-14.7)
[2022-03-05 13:19] LABS: BUN/CREATININE RATIO 20
[2022-03-05 13:21] LABS: ALANINE AMINOTRANSFERASE 21 U/L (0-55); MAGNESIUM 1.9 MG/DL (1.6-2.4)
[2022-03-05 15:06] VITALS: BP 150/79
== END 2022-03-05 15:06 | disposition home or self-care (01) ==
LOC: EDUNIT# 12:04 → ER 12:05
DX: R55 Syncope and collapse (principal); Z28.311 Partially vaccinated for COVID-19
CPT/HCPCS: 36415; 70450; 71045; 72125; 80053; 81000; 83735; 84484; 85025; 85379; 85610; 85730; 93005; 93041